=== PATIENT | female | born 1950 | race Two or more races ===

== ENCOUNTER 2025-01-25 06:19 | Emergency (ER) | payer MEDICARE, OTHER ==
[~2025-01-25] VITALS: Ht 157.5 cm; Wt 77.6 kg
[2025-01-25 06:55] LABS: PLATELET COUNT (AUTO) 156 K/uL (150-450); RED BLOOD CELL COUNT(AUTO) 2.85 MIL/uL (4.0-5.2); RED CELL DISTRIBUTION WIDTH 16.3 % (11.5-15.0); WHITE BLOOD COUNT (AUTO) 5.1 K/uL (4.3-11.0)
[2025-01-25 07:10] LABS: INR 0.97 (0.91-1.10)
[2025-01-25 07:11] LABS: ASPARTATE AMINOTRANSFERASE 18.0 U/L (15-37); CALCIUM, SERUM 8.1 mg/dL (8.5-10.1); CREATININE 4.1 mg/dL (0.6-1.3); SODIUM SERUM 136.0 mmol/L (136-145); TOTAL PROTEIN, SERUM 7.1 g/dL (6.4-8.2); UREA NITROGEN, BLOOD 17.0 mg/dL (7-18)
[2025-01-25] MEDS ORDERED: CT SWABBABLE VALVE TRANS SET 1 EA INFUS.SET MC ONE (08:18)
[2025-01-25] MEDS ORDERED: IOHEXOL-300 100 ML VIAL IV ONE (08:18)
[2025-01-25] MEDS ORDERED: IV NS 0.9% 250 ML IV ONE (08:18)
[2025-01-25 11:16] VITALS: BP 122/64; TEMP 98.4; O2SAT 98
== END 2025-01-25 11:16 | disposition home or self-care (01) ==
LOC: ER 06:22 → TELE 10:24 → UNDOADMIN 10:24 → UNDODISIN 11:10 → ER 11:16
DX: D53.9 Nutritional anemia, unspecified (principal); I13.2 Hypertensive heart and chronic kidney disease with heart failure and with stage 5 chronic kidney disease, or end stage renal disease; E11.22 Type 2 diabetes mellitus with diabetic chronic kidney disease; I50.9 Heart failure, unspecified; N85.00 Endometrial hyperplasia, unspecified; N93.9 Abnormal uterine and vaginal bleeding, unspecified
CPT/HCPCS: 99284; 74177; 76856; 71045; 93005; 85025; 80048; 80076; 36415; 85730; 87081; 86850; J7050; Q9967; G0378